=== PATIENT | female | born 1990 | race Caucasian/White ===

== ENCOUNTER 2023-05-22 09:26 | Inpatient (IN) | payer OTHER ==
[2023-05-22] MEDS ORDERED: ONDANSETRON 4 MG/2 ML VIAL IVPUSH ONE ×3 (10:34→15:19)
[2023-05-22] MEDS ORDERED: SODIUM CHLORIDE 1,000 ML IV STA ×3 (10:34→12:26)
[2023-05-22] MEDS ORDERED: FAMOTIDINE 20 MG/50 ML IVPB 20 MG/50 ML MG IVPB ONE ×3 (10:35→12:26)
[2023-05-22] MEDS ORDERED: ONDANSETRON 4 MG/2 ML VIAL ONE ×2 (11:20→15:41)
[2023-05-22 12:02] LABS: HEMATOCRIT 40.2 % (32.4-45.2); HEMOGLOBIN 13.2 GM/dL (10.7-15.3); MCHC 32.8 g/dl (32.0-36.0); MEAN CELL VOLUME 97.4 fl (80-96); MEAN PLT VOLUME 7.9 fl (7.5-11.1); PLATELET COUNT 195 10^3/uL (134-434); RBC 4.12 M/mm3 (3.60-5.2); RDW 13.6 % (11.6-15.6); WHITE BLOOD COUNT 18.2 K/mm3 (4.0-10.0)
[2023-05-22 12:23] LABS: POTASSIUM 4.3 mmol/L (3.5-5.1)
[2023-05-22 12:25] LABS: CALCIUM 8.9 mg/dL (8.5-10.1)
[2023-05-22 12:26] LABS: ALBUMIN 4.2 g/dl (3.4-5.0); BLOOD UREA NITROGEN 15.2 mg/dL (7-18)
[2023-05-22 12:29] LABS: CREATININE 0.7 mg/dL (0.55-1.3)
[2023-05-22 12:30] LABS: BILIRUBIN,TOTAL 0.7 mg/dL (0.2-1); TOT PROT 7.2 g/dl (6.4-8.2)
[2023-05-22 14:04] LABS: ANISOCYTOSIS 1+; MACROCYTOSIS 0; OVALOCYTE 2+; TEAR DROP CELLS 1+
[2023-05-22] MEDS ORDERED: ACETAMINOPHEN 1000 MG/100 ML BAG IVPB ONE (14:21)
[2023-05-22] MEDS ORDERED: ACETAMINOPHEN INJECTION 100 ML IVPB ONE (14:25)
[2023-05-22 14:49] LABS: URINE APPEARANCE CLEAR; URINE BILIRUBIN NEGATIVE (NEGATIVE); URINE COLOR YELLOW; URINE GLUCOSE (UA) TRACE (NEGATIVE); URINE KETONE 2+ (NEGATIVE); URINE LEUK ESTERASE NEGATIVE (NEGATIVE); URINE NITRITE NEGATIVE (NEGATIVE); URINE PROTEIN NEGATIVE (NEGATIVE); URINE UROBILINOGEN 0.2 mg/dL (0.2-1.0)
[2023-05-22] MEDS ORDERED: LACTATED RINGERS SOLUTION 1,000 ML/1,000 ML INFUS.BAG IV SCH (15:30)
[2023-05-22] MEDS ORDERED: METOCLOPRAMIDE HCL INJECTION 10 MG/2 ML VIAL IVPUSH ONE (18:28)
[2023-05-22] MEDS ORDERED: METOCLOPRAMIDE HCL INJECTION 10 MG/2 ML VIAL ONE (18:37)
[2023-05-22] MEDS: DEXTROSE 5%-LACTATED RINGERS 1,000 ML IV SCH (18:51)
[2023-05-22] MEDS ORDERED: ONDANSETRON 4 MG/2 ML VIAL IVPUSH PRN (19:45)
[2023-05-22 23:01] LABS: OPIATES, URI NEGATIVE (NEGATIVE)
[2023-05-22 23:02] LABS: METHADONE, UR NEGATIVE (NEGATIVE); PHENCYCLIDINE,URINE NEGATIVE (NEGATIVE); URINE BARBITURATES NEGATIVE (NEGATIVE); URINE BENZODIAZEPINES NEGATIVE (NEGATIVE)
[2023-05-22 23:03] LABS: COCAINE, UR NEGATIVE (NEGATIVE)
[2023-05-22 23:07] LABS: BASO % 0.2 % (0-2.0); EOS % 0.4 % (0-4.5); HEMATOCRIT 35.3 % (32.4-45.2); HEMOGLOBIN 12.2 GM/dL (10.7-15.3); MCH 33.1 pg (25.7-33.7); MCHC 34.6 g/dl (32.0-36.0); MEAN CELL VOLUME 95.8 fl (80-96); MEAN PLT VOLUME 8.1 fl (7.5-11.1); MONO % 3.3 % (3.8-10.2); NEUT % 89.1 % (42.8-82.8); PLATELET COUNT 163 10^3/uL (134-434); RBC 3.69 M/mm3 (3.60-5.2); RDW 13.4 % (11.6-15.6); WHITE BLOOD COUNT 15.8 K/mm3 (4.0-10.0)
[2023-05-22 23:23] LABS: URINE AMPHETAMINES NEGATIVE (NEGATIVE)
[2023-05-22] MEDS ORDERED: metroNIDAZOLE 250 MG TABLET PO SCH (23:30)
[2023-05-22] MEDS ORDERED: DOXYCYCLINE HYCLATE 100 MG CAPSULE PO SCH (23:30)
[2023-05-23 00:26] LABS: HIV INTERPRETATION NEGATIVE (NEGATIVE)
[2023-05-23] MEDS: CEFTRIAXONE 1 GM in DEXTROSE 5%-WATER - 50 ML IVPB SCH ×2 (01:11→23:43)
[2023-05-23 08:46] LABS: HEMATOCRIT 35.7 % (32.4-45.2); HEMOGLOBIN 11.9 GM/dL (10.7-15.3); MCH 32.4 pg (25.7-33.7); MCHC 33.4 g/dl (32.0-36.0); MEAN PLT VOLUME 8.6 fl (7.5-11.1); PLATELET COUNT 167 10^3/uL (134-434); RBC 3.68 M/mm3 (3.60-5.2); RDW 13.3 % (11.6-15.6)
[2023-05-23 09:07] LABS: POTASSIUM 3.6 mmol/L (3.5-5.1)
[2023-05-23 09:33] LABS: ALBUMIN 3.6 g/dl (3.4-5.0); BLOOD UREA NITROGEN 9.9 mg/dL (7-18); CALCIUM 8.1 mg/dL (8.5-10.1)
[2023-05-23 09:36] LABS: CREATININE 0.7 mg/dL (0.55-1.3)
[2023-05-23 09:38] LABS: BILIRUBIN,TOTAL 0.9 mg/dL (0.2-1); TOT PROT 6.2 g/dl (6.4-8.2)
[2023-05-23] MEDS ORDERED: DOXYCYCLINE INJECTION 100 MG in DEXTROSE 5%-WATER 100 ML IVPB SCH (10:00)
[2023-05-23] MEDS: ENOXAPARIN NA (PORCINE) 40 MG/0.4 ML DISP.SYRIN SQ SCH (11:02)
[2023-05-23 14:33] VITALS: BMI 17.8
[2023-05-23] MEDS: DEXTROSE 5%-LACTATED RINGERS 1,000 ML IV SCH (18:38)
[2023-05-23] MEDS ORDERED: ACETAMINOPHEN 1000 MG/100 ML BAG IVPB ONE (21:47)
[2023-05-23] MEDS: TRIMETHOBENZAMIDE HCL 200MG/2ML INJ IM PRN (21:57)
[2023-05-24] MEDS ORDERED: MELATONIN 5 MG TABLETS PO ONE (02:17)
[2023-05-24] MEDS: DEXTROSE 5%-LACTATED RINGERS 1,000 ML IV SCH ×2 (05:19→18:22)
[2023-05-24] MEDS: TRIMETHOBENZAMIDE HCL 200MG/2ML INJ IM PRN (05:51)
[2023-05-24 10:23] LABS: BASO % 0.3 % (0-2.0); EOS % 0.1 % (0-4.5); HEMOGLOBIN 12.5 GM/dL (10.7-15.3); LYMPH % 15.5 % (8-40); MCH 32.5 pg (25.7-33.7); MCHC 33.8 g/dl (32.0-36.0); MEAN PLT VOLUME 8.4 fl (7.5-11.1); MONO % 6.9 % (3.8-10.2); NEUT % 77.2 % (42.8-82.8); PLATELET COUNT 159 10^3/uL (134-434); RBC 3.85 M/mm3 (3.60-5.2); RDW 13.2 % (11.6-15.6); WHITE BLOOD COUNT 10.3 K/mm3 (4.0-10.0)
[2023-05-24 10:31] LABS: POTASSIUM 3.3 mmol/L (3.5-5.1)
[2023-05-24 10:33] LABS: CALCIUM 8.4 mg/dL (8.5-10.1)
[2023-05-24 10:34] LABS: ALBUMIN 3.8 g/dl (3.4-5.0)
[2023-05-24 10:37] LABS: CREATININE 0.6 mg/dL (0.55-1.3)
[2023-05-24 10:38] LABS: BILIRUBIN,TOTAL 0.8 mg/dL (0.2-1)
[2023-05-24 10:39] LABS: TOT PROT 6.6 g/dl (6.4-8.2)
[2023-05-24] MEDS: PANTOPRAZOLE 40 MG TABLET PO SCH (15:43)
[2023-05-25] MEDS: CEFTRIAXONE 1 GM in DEXTROSE 5%-WATER - 50 ML IVPB SCH ×2 (00:26→23:45)
[2023-05-25] MEDS: TRIMETHOBENZAMIDE HCL 200MG/2ML INJ IM PRN ×2 (01:47→16:54)
[2023-05-25] MEDS: ACETAMINOPHEN 1000 MG/100 ML BAG IVPB PRN ×2 (02:11→11:29)
[2023-05-25] MEDS: DEXTROSE 5%-LACTATED RINGERS 1,000 ML IV SCH ×3 (04:13→19:04)
[2023-05-25] MEDS ORDERED: MELATONIN 5 MG TABLETS PO ONE (06:16)
[2023-05-25] MEDS: MELATONIN 5 MG TABLETS PO PRN ×2 (06:23→21:27)
[2023-05-25] MEDS: PANTOPRAZOLE 40 MG TABLET PO SCH (09:27)
[2023-05-25] MEDS: ENOXAPARIN NA (PORCINE) 40 MG/0.4 ML DISP.SYRIN SQ SCH (09:27)
[2023-05-25] MEDS: ALPRAZolam 1 MG TABLET PO PRN ×2 (11:57→21:27)
[2023-05-25] MEDS ORDERED: FAMOTIDINE 20 MG/50 ML IVPB 20 MG/50 ML MG IVPB ONE (12:04)
[2023-05-25] MEDS ORDERED: ALPRAZolam 1 MG TABLET PO ONE (12:30)
[2023-05-26] MEDS: ACETAMINOPHEN 1000 MG/100 ML BAG IVPB PRN (00:51)
[2023-05-26] MEDS: TRIMETHOBENZAMIDE HCL 200MG/2ML INJ IM PRN ×2 (02:48→21:54)
[2023-05-26] MEDS: DEXTROSE 5%-LACTATED RINGERS 1,000 ML IV SCH (03:25)
[2023-05-26] MEDS: PANTOPRAZOLE 40 MG TABLET PO SCH (09:11)
[2023-05-26] MEDS: ENOXAPARIN NA (PORCINE) 40 MG/0.4 ML DISP.SYRIN SQ SCH (09:11)
[2023-05-26] MEDS: SUCRALFATE 1 GM TABLET (FP) PO SCH ×3 (13:51→23:06)
[2023-05-26] MEDS: MELATONIN 5 MG TABLETS PO PRN (21:56)
[2023-05-26] MEDS: ALPRAZolam 1 MG TABLET PO PRN (21:56)
[2023-05-26] MEDS: CEFTRIAXONE 1 GM in DEXTROSE 5%-WATER - 50 ML IVPB SCH (23:07)
[2023-05-27] MEDS ORDERED: LORazepam 2 MG/ML SDV VIAL IVPUSH ONE (05:14)
[2023-05-27] MEDS: TRIMETHOBENZAMIDE HCL 200MG/2ML INJ IM PRN ×2 (08:30→17:24)
[2023-05-27 10:45] LABS: BASO % 0.3 % (0-2.0); EOS % 0.4 % (0-4.5); HEMOGLOBIN 14.3 GM/dL (10.7-15.3); LYMPH % 18.8 % (8-40); MEAN CELL VOLUME 94.3 fl (80-96); MEAN PLT VOLUME 7.7 fl (7.5-11.1); MONO % 8.9 % (3.8-10.2); NEUT % 71.6 % (42.8-82.8); PLATELET COUNT 194 10^3/uL (134-434); RBC 4.35 M/mm3 (3.60-5.2); WHITE BLOOD COUNT 10.2 K/mm3 (4.0-10.0)
[2023-05-27] MEDS: SUCRALFATE 1 GM TABLET (FP) PO SCH ×4 (10:49→21:11)
[2023-05-27] MEDS: PANTOPRAZOLE 40 MG TABLET PO SCH (10:49)
[2023-05-27] MEDS: ENOXAPARIN NA (PORCINE) 40 MG/0.4 ML DISP.SYRIN SQ SCH (10:50)
[2023-05-27 10:56] LABS: CHLORIDE 101 mmol/L (98-107); SODIUM 138 mmol/L (136-145)
[2023-05-27 11:01] LABS: CALCIUM 8.6 mg/dL (8.5-10.1)
[2023-05-27 11:02] LABS: CO2 28 mmol/L (21-32); GLUCOSE,RANDOM 110 mg/dL (74-106)
[2023-05-27 11:05] LABS: CREATININE 0.6 mg/dL (0.55-1.3); SGOT/AST 48 U/L (15-37); SGPT/ALT 57 U/L (13-61)
[2023-05-27 11:06] LABS: BILIRUBIN,TOTAL 1.4 mg/dL (0.2-1); TOT PROT 6.9 g/dl (6.4-8.2)
[2023-05-27 11:07] LABS: ALK PHOS 45 U/L (45-117)
[2023-05-27 11:10] LABS: ANION GAP 10 mmol/L (4-13); POTASSIUM 2.8 mmol/L (3.5-5.1)
[2023-05-27] MEDS: KCL 10 MEQ IVPB 10 MEQ/100 ML INFUS.BAG IVPB SCH ×2 (12:16→13:59)
[2023-05-27] MEDS: ALPRAZolam 1 MG TABLET PO PRN (12:16)
[2023-05-27] MEDS: DEXTROSE 5%-LACTATED RINGERS 1,000 ML IV SCH ×2 (13:58→17:23)
[2023-05-27] MEDS: busPIRone HCL 10 MG TABLET (FP) PO SCH (21:09)
[2023-05-27] MEDS: MELATONIN 5 MG TABLETS PO PRN (23:00)
[2023-05-28] MEDS: DEXTROSE 5%-LACTATED RINGERS 1,000 ML IV SCH (02:45)
[2023-05-28] MEDS: ALPRAZolam 1 MG TABLET PO PRN (04:50)
[2023-05-28] MEDS: ENOXAPARIN NA (PORCINE) 40 MG/0.4 ML DISP.SYRIN SQ SCH (09:06)
[2023-05-28] MEDS: busPIRone HCL 10 MG TABLET (FP) PO SCH (09:07)
[2023-05-28] MEDS: SUCRALFATE 1 GM TABLET (FP) PO SCH ×3 (09:07→18:26)
[2023-05-28] MEDS: PANTOPRAZOLE 40 MG TABLET PO SCH (09:07)
[2023-05-28 11:49] LABS: CHLORIDE 101 mmol/L (98-107); SODIUM 137 mmol/L (136-145)
[2023-05-28 11:51] LABS: BLOOD UREA NITROGEN 6.1 mg/dL (7-18); CALCIUM 8.7 mg/dL (8.5-10.1); CO2 27 mmol/L (21-32); GLUCOSE,RANDOM 114 mg/dL (74-106)
[2023-05-28 11:54] LABS: CREATININE 0.6 mg/dL (0.55-1.3)
[2023-05-28 12:04] LABS: ANION GAP 9 mmol/L (4-13); POTASSIUM 2.9 mmol/L (3.5-5.1)
[2023-05-28] MEDS ORDERED: POTASSIUM CHLORIDE TABS 20 MEQ TABLET.ER (FP) PO SCH (12:30)
[2023-05-28 12:35] VITALS: RESP 18
[2023-05-28] MEDS: KCL 10 MEQ IVPB 10 MEQ/100 ML INFUS.BAG IVPB SCH ×3 (13:53→16:25)
[2023-05-28 15:15] VITALS: BP 130/95; PULSE 65
[2023-05-28 17:45] VITALS: TEMP 98.4
== END 2023-05-28 19:00 | disposition home or self-care (01) | DRG 241 ==
LOC: JER 09:26 → OBSVTOIN 20:27 → JERBED 20:27 → J7W 23:44
PROVIDERS: ADMIT Internal Medicine; ATTEND Internal Medicine
PROC: 0DB98ZX Excision of Duodenum, Via Natural or Artificial Opening Endoscopic, Diagnostic (ICD-10-PCS; 2023-05-24)
PROC: 0DB68ZX Excision of Stomach, Via Natural or Artificial Opening Endoscopic, Diagnostic (ICD-10-PCS; principal; 2023-05-24 11:00)
DX: K29.00 Acute gastritis without bleeding (principal); R91.1 Solitary pulmonary nodule; F41.9 Anxiety disorder, unspecified; R00.1 Bradycardia, unspecified; F12.90 Cannabis use, unspecified, uncomplicated; R11.15 Cyclical vomiting syndrome unrelated to migraine; F41.0 Panic disorder [episodic paroxysmal anxiety]; F32.A Depression, unspecified; F10.90 Alcohol use, unspecified, uncomplicated; R11.2 Nausea with vomiting, unspecified; K76.0 Fatty (change of) liver, not elsewhere classified; R16.2 Hepatomegaly with splenomegaly, not elsewhere classified
CPT/HCPCS: 36415; 71045-TC-FY; 74177-TC; 76700-TC; 76830-TC; 80048; 80053; 80307; 81003; 82010; 83036; 83690; 83735; 84703; 85025; 85027; 87040; 87389; 87491; 87591; 87661; 88305-TC; 93005; 93010; 93306-TC; 99285-25; Q9967